=== PATIENT | female | born 1980 | race Caucasian/White ===

== ENCOUNTER 2021-06-03 16:10 | Emergency (ER) | payer OTHER ==
[~2021-06-03] VITALS: Ht 165.1 cm; Wt 90.7 kg
[2021-06-03] MEDS ORDERED: AMOXICILLIN500 MG PO (20:42)
[2021-06-03 21:02] VITALS: BP 152/87
== END 2021-06-03 21:02 | disposition home or self-care (01) | DRG 914 ==
LOC: ED 16:10
PROC: 0HQDXZZ Repair Right Lower Arm Skin, External Approach (ICD-10-PCS; principal; 2021-06-03)
DX: S51.821A Laceration with foreign body of right forearm, initial encounter (principal); F17.200 Nicotine dependence, unspecified, uncomplicated; V86.95XA Unspecified occupant of 3- or 4- wheeled all-terrain vehicle (ATV) injured in nontraffic accident, initial encounter; Y93.I9 Activity, other involving external motion; Y92.821 Forest as the place of occurrence of the external cause